=== PATIENT | female | born 1980 | race Caucasian/White ===

== ENCOUNTER 2022-05-08 11:11 | Emergency (ER) | payer OTHER ==
[~2022-05-08] VITALS: Ht 157.5 cm; Wt 63.5 kg
[2022-05-08 11:24] VITALS: BP_SYST 138
--- NOTE | 2022-05-08 12:29 | NUR ---
Patient left without being seen.
== END 2022-05-08 12:29 | disposition left against medical advice (07) ==
LOC: SED 11:11
DX: R06.02 Shortness of breath (principal); R51.9 Headache, unspecified; R09.81 Nasal congestion; Z53.21 Procedure and treatment not carried out due to patient leaving prior to being seen by health care provider; Z20.822 Contact with and (suspected) exposure to COVID-19
CPT/HCPCS: 36415

== ENCOUNTER 2022-12-15 19:52 | Emergency (ER) | payer OTHER ==
[~2022-12-15] VITALS: Ht 157.5 cm; Wt 64.4 kg
[2022-12-15 20:04] VITALS: BP_SYST 144
[2022-12-15] MEDS ORDERED: MECL-225 PO (21:48)
[2022-12-15] MEDS ORDERED: BENZ100C92 PO (21:48)
[2022-12-15] MEDS ORDERED: ALBMDI INH (21:48)
[2022-12-15 22:10] VITALS: BP_SYST 140
== END 2022-12-15 22:10 | disposition home or self-care (01) ==
LOC: SED 19:52
DX: J06.9 Acute upper respiratory infection, unspecified (principal); R07.89 Other chest pain; R06.02 Shortness of breath; R42 Dizziness and giddiness; R05.9 Cough, unspecified; R09.81 Nasal congestion; J02.9 Acute pharyngitis, unspecified; Z79.899 Other long term (current) drug therapy
CPT/HCPCS: 71045; 93005; 99283